=== PATIENT | male | born 1980 | race Caucasian/White ===

== ENCOUNTER 2017-01-20 11:33 | Emergency (ER) | payer OTHER ==
[~2017-01-20] VITALS: Ht 185.4 cm; Wt 124.7 kg
--- NOTE | ~2017-01-20 | CR108 ---
[facility] A Service of [facility] & [facility] RADIOLOGY TEXT RESULTS PATIENT: DAPHNE HICKMAN LOCATION: SED : 76 UNIT #: [id number] AGE: [address]: MP PATINO SEX: M ORDER DR: [id number] [place] [id number] E MR#: [id number] Acc #: [id number] NAME: DAPHNE HICKMAN : 1980 SEX: M STUDY DATE/TIME: 01/20/2017 11:54 UNIT: SED ROOM: STUDY DESCRIPTION: CR Finger 2 View 2nd Lt Attending Physician: Mp Patino Aprn Ordering Physician: Mp Patino Aprn Primary Care Physician: Primary Care Physician No MEDICAL IMAGING REPORT This report is preliminary unless electronic signature is present. EXAM Left index finger HISTORY Smashed in car door today, pain second finger. FINDINGS Two views of the left index finger demonstrates no fracture or deformity. Joint space is maintained. Soft tissues unremarkable. No radiopaque foreign body. IMPRESSION Negative left index finger. Dictated by... Jeison Sierra M.D. THIS IS AN ELECTRONICALLY VERIFIED REPORT Jeison Sierra M.D. at 01/22/2017 4:04 PM RIVERA/stella TD: 01/20/2017 21:52 JOB #: [id number] MEDICAL IMAGING REPORT Page 1 of 1
[~2017-01-20 11:33] MED LIST: ADIPEX-P37.5 M1 PO; ALBUTEROL 0.5ML INH; ALBUTEROL17 GM INH; ALPRAZOLAM; AMOXICILLIN PO; AZITHROMYCIN250 MG PO; BETABLOCKER; CELEXA PO; COMPLERA TABLE1 EACH PO; DAZIDOX10 MG PO; DICYCLOMINE HCL20 MG PO; DOXYCYCLINE HY100 M1 PO; DOXYCYCLINE HY100 M3 PO; EXCEDRIN MIGRAI1 TA1; FLEXERIL PO; HYDROCODON-ACE1 EAC4 PO; HYDROMET SYRUP480 ML PO; LATUDA40 MG; LISINOPRIL PO; LISINOPRIL20 MG PO; LORTAB 10/500 T1 TAB PO; LORTAB 2.5/5001 TAB PO; MEDROL4 MG/DOSE- PO; NEURONTIN; PERCOCET5/325 PO; PHENERGAN PO; PREDNISONE PO; PRINIVIL20 M1 PO; ROBITUSSIN-DM120 ML PO; TRAZODONE; TRIUMEQ TABLET1 EACH; TUSSIN100 MG/51 PO; VICODIN PO; VOLTAREN50 MG PO; XANAX1 MG PO; ZITHROMAX PO; ZOFRAN ODT4 MG/UDTAB SL; ZOFRAN PO; ZOLOFT50 MG PO; [UNRECOGNIZED DRUG - OTHER] PO
== END 2017-01-20 13:12 | disposition home or self-care (01) ==
LOC: SED 11:33
DX: S61.211A Laceration without foreign body of left index finger without damage to nail, initial encounter (principal); F17.210 Nicotine dependence, cigarettes, uncomplicated; B20 Human immunodeficiency virus [HIV] disease; W23.0XXA Caught, crushed, jammed, or pinched between moving objects, initial encounter
CPT/HCPCS: 12001; 73140; 99283